=== PATIENT | female | born 1970 | race Caucasian/White ===

== ENCOUNTER 2016-07-01 12:17 | Outpatient (CLI) | payer OTHER ==
[~2016-07-01] VITALS: Ht 170.2 cm; Wt 99.8 kg
[2016-07-01] MEDS ORDERED: BUPIVACAINE 0.5% 30 ML (SENSORCAINE) VIAL ONE (12:20)
[2016-07-01] MEDS ORDERED: LIDOCAINE 1% INJ 20 ML (XYLOCAINE) VIAL ONE (12:21)
[2016-07-01] MEDS ORDERED: TRIAMCINOLONE ACET (KENALOG-40) 40 MG/ML 1 ML VIAL ONE (12:21)
[2016-07-01 12:39] VITALS: BP 145/102
[2016-07-01 13:21] VITALS: BP 144/104
--- NOTE | 2016-07-01 14:43 | Pain Medicine-Procedure ---
Procedure Pre-Op/Post-Op Diagnosis Diagnosis: spondylosis without myelopathy, lumbar Indications for Operation Low back pain Attending Surgeon Oralia Procedure Date of Service: Jul 01, 2016 Procedure: Fluoroscopic guided right Medial Branch Block of L3 to sacral ala PROCEDURE IN DETAIL: After obtaining informed consent from the patient, the patient's chart was reviewed. The patient was then brought to the procedure room and placed in the prone position. A time out was performed. The back was prepped with antiseptic solution and under fluoroscopic guidance the patient's sacral ala on the right side was identified. 2 mL's of 1% Lidocaine was used to anesthetized the skin over the sacral ala and a 22 gauge 3.5 inch needle was advanced towards the target until bone was contacted. The junction of the superior articular processes and the transverse processes at L3-L5 on the right were then identified and the skin overlying these targets was anesthetized with 1% lidocaine. Next a 22 gauge 3.5 inch needle was inserted through the skin to the level of the lumbar medial branches under radiographic guidance. Next, after negative aspiration, a mixture of 2 mL's Bupivacaine 0.5% and 80 mg Kenalog was injected in 4 equal aliquots. CSF was negative, Paresthesia was negative, Heme was negative. All needles were then flushed with 1% lidocaine and then removed. Complications None ALAYNA GUTIERRES MD Jul 01, 2016 2:43 pm
== END 2016-07-01 13:22 | disposition home or self-care (01) ==
LOC: CARD 12:17
PROVIDERS: ATTEND Pain Medicine Pain Medicine
DX: M47.816 Spondylosis without myelopathy or radiculopathy, lumbar region (principal); G89.4 Chronic pain syndrome; Z79.899 Other long term (current) drug therapy
CPT/HCPCS: 64493; 64494; 64495

== ENCOUNTER → 2016-07-18 | Outpatient (CLI) | payer OTHER ==
--- NOTE | 2016-07-18 14:06 | Diagnostic Imaging Report ---
PROCEDURE: CT lumbar spine without contrast. TECHNIQUE: Multiple contiguous axial images were obtained through the lumbar spine without the use of intravenous contrast. Sagittal and coronal reformations were then performed. INDICATION: Status post SI joint fusion. FINDINGS: There are 2 fusion screws seen through the right sacroiliac joint. No osseous bridging is seen. The alignment of both SI joints is normal. The alignment of the lumbar spine is satisfactory. The vertebral body heights are preserved. There is mild disc height loss at L2/L3, L3-L4 and L4/L5 levels. There is suggestion of minimal disc herniations at these levels without an obvious significant spinal canal stenosis identified on this exam without intrathecal contrast. There is bilateral lower lumbar spine facet joint arthropathy. There is bilateral neuroforaminal stenosis of mild to moderate degree at L4/L5 level. The other neuroforamina appear patent. IMPRESSION: Two screws across the right sacroiliac joint in good position. There is no osseous fusion seen. Dictated by: Dictated on workstation # [id number]
== END ==
LOC: RAD 13:17
PROVIDERS: ATTEND Orthopaedic Surgery Orthopaedic Surgery of the Spine
DX: Z48.89 Encounter for other specified surgical aftercare (principal); Z98.1 Arthrodesis status
CPT/HCPCS: 72131

== ENCOUNTER → 2016-07-22 | Outpatient (CLI) | payer OTHER ==
--- NOTE | 2016-07-23 18:23 | Diagnostic Imaging Report ---
Bilateral screening mammogram. The current study was also evaluated with a Computer Aided Detection (CAD) system. INDICATION: Screening. No current complaints stated on the questionnaire. COMPARISON: 10/02/15 FINDINGS: The breasts are composed of scattered fibroglandular densities. There is no mass, architectural distortion or suspicious cluster of calcification seen. Allowing for technique and positional differences, no suspicious change is seen. IMPRESSION: No significant change. ACR BI-RADS Category 2: Benign findings. Result letter will be mailed to the patient. Note: At least 10% of breast cancer is not imaged by mammography. Dictated by: Dictated on workstation # [id number]
== END ==
LOC: RAD 10:16
PROVIDERS: ATTEND Family Medicine
DX: Z12.31 Encounter for screening mammogram for malignant neoplasm of breast (principal)
CPT/HCPCS: 77067

== ENCOUNTER 2016-10-28 13:35 | Outpatient (CLI) | payer OTHER ==
[~2016-10-28] VITALS: Ht 170.2 cm; Wt 99.8 kg
[2016-10-28] MEDS ORDERED: BUPIVACAINE 0.5% 30 ML (SENSORCAINE) VIAL ONE (13:38)
[2016-10-28] MEDS ORDERED: LIDOCAINE 1% INJ 20 ML (XYLOCAINE) VIAL ONE (13:39)
[2016-10-28] MEDS ORDERED: TRIAMCINOLONE ACET (KENALOG-40) 40 MG/ML 1 ML VIAL ONE (13:39)
[2016-10-28 13:49] VITALS: BP 133/91
[2016-10-28 14:33] VITALS: BP 139/96
--- NOTE | 2016-10-28 16:03 | Pain Medicine-Procedure ---
Procedure Pre-Op/Post-Op Diagnosis Diagnosis: spondylosis without myelopathy, lumbar Indications for Operation Low back pain Attending Surgeon Oralia Procedure Date of Service: October 28, 2016 Procedure: Fluoroscopic guided right Medial Branch Block of L3 to sacral ala PROCEDURE IN DETAIL: After obtaining informed consent from the patient, the patient's chart was reviewed. The patient was then brought to the procedure room and placed in the prone position. A time out was performed. The back was prepped with antiseptic solution and under fluoroscopic guidance the patient's sacral ala on the right side was identified. 2 mL's of 1% Lidocaine was used to anesthetized the skin over the sacral ala and a 22 gauge 3.5 inch needle was advanced towards the target until bone was contacted. The junction of the superior articular processes and the transverse processes at L3-L5 on the right were then identified and the skin overlying these targets was anesthetized with 1% lidocaine. Next a 22 gauge 3.5 inch needle was inserted through the skin to the level of the lumbar medial branches under radiographic guidance. Next, after negative aspiration, a mixture of 2 mL's Bupivacaine 0.5% and 80 mg Kenalog was injected in 4 equal aliquots. CSF was negative, Paresthesia was negative, Heme was negative. All needles were then flushed with 1% lidocaine and then removed. Complications None ALAYNA GUTIERRES MD October 28, 2016 4:03 pm
== END 2016-10-28 14:34 ==
LOC: CARD 13:35
PROVIDERS: ATTEND Pain Medicine Pain Medicine
DX: M47.816 Spondylosis without myelopathy or radiculopathy, lumbar region (principal); Z79.899 Other long term (current) drug therapy
CPT/HCPCS: 64493; 64494; 64495

== ENCOUNTER → 2017-08-22 | Outpatient (CLI) | payer OTHER ==
--- NOTE | 2017-08-22 18:10 | Diagnostic Imaging Report ---
Digital mammogram bilateral screening. This study was compared to the prior exams of 07/22/2016, 10/02/2015, and 10/20/2013. At this time, there are no current complaints. The current study was also evaluated with a Computer Aided Detection (CAD) system. FINDINGS: There are scattered fibroglandular densities in both breasts which could obscure a lesion. Overall, there does not appear to have been any significant change when compared to the prior exam. No primary or secondary sign of malignancy is noted. IMPRESSION: There is no radiographic evidence for malignancy. ACR BI-RADS Category 1: Negative. Result letter will be mailed to the patient. Note: At least 10% of breast cancer is not imaged by mammography. Dictated by: Dictated on workstation # [id number]
== END ==
LOC: RAD 09:53
PROVIDERS: ATTEND Family Medicine
DX: Z12.31 Encounter for screening mammogram for malignant neoplasm of breast (principal)
CPT/HCPCS: 77067

== ENCOUNTER 2017-11-20 14:46 | Outpatient (CLI) | payer OTHER ==
[~2017-11-20] VITALS: Ht 170.2 cm; Wt 90.7 kg
[2017-11-20] MEDS ORDERED: methylPREDNISolone 80 MG/ML (DEPO MEDROL) VIAL ONE (14:51)
[2017-11-20 14:58] VITALS: BP 140/94
[2017-11-20 15:16] VITALS: BP 157/118
--- NOTE | 2017-11-20 18:51 | OPERATIVE REPORT ---
DATE OF SERVICE: 11/20/2017 DIAGNOSIS: Lumbar spondylosis. PROCEDURE: Fluoroscopic-guided facet medial branch block right. PROCEDURE IN DETAIL: After obtaining informed consent from the patient, the patient's chart was reviewed. The patient was then brought to the procedure room and placed in prone position. Time-out was performed. The area and the right neck, upper back, lower back was prepped with antiseptic solution and under fluoroscopic guidance, the patient's L2, L3, L4, and L5 area was examined and the facet joints listed above were identified. L2, L3, L4, and L5 was identified under fluoroscopy. A 22-gauge 3-1/2 inch spinal needle was inserted and advanced under fluoroscopy down to the area where the pedicle and the transverse process meet and approximately 1 mL of 1% lidocaine was injected at this level. This was then repeated for the remainder of the levels stated above. Afterwards, the needle was removed. Band-Aids were applied to all sites and the patient tolerated the procedure well and was taken to the recovery area in stable condition. COMPLICATIONS: None. Job ID: [id number] DocumentID: [id number] Dictated Date: 11/20/2017 15:16:18 Manager [employer] Date: 11/20/2017 18:50:19 Dictated By: MIRA PISANO DO
== END 2017-11-20 15:18 | disposition home or self-care (01) ==
LOC: CARD 14:46
PROVIDERS: ATTEND Pain Medicine Interventional Pain Medicine
DX: M54.16 Radiculopathy, lumbar region (principal)
CPT/HCPCS: 64493; 64494; 64495

== ENCOUNTER → 2017-12-26 | Outpatient (CLI) | payer OTHER ==
--- NOTE | 2017-12-26 15:40 | Diagnostic Imaging Report ---
PROCEDURE: MRI lumbar spine. TECHNIQUE: Multiplanar, multisequence MRI of the lumbar spine was performed without contrast. INDICATION: History of discectomy, numbness to the right knee, back pain. COMPARISON: Study compared to 04/20/2016. FINDINGS: Lumbar body heights are maintained. Alignment is anatomic. Marrow signal intensity is normal. No paravertebral mass, hemorrhage, or fluid collection. Partially visualized sacrum is unremarkable. The conus appeared normal. There is no paravertebral mass, hemorrhage, or fluid collection. T12-L1: Mild disc stature loss and bulging anterior greater than posterior present. Disc material posteriorly is mildly asymmetric to the left with a borderline mild degree of left foraminal narrowing. This is stable. No substantial canal or right foraminal stenosis. Lateral recess is patent. L1-L2: Very slight circumferential annular disc bulge without focal herniation, stable. Left renal cortical cysts noted, stable. L2-L3: Disc desiccation, loss of disc stature, and circumferential bulge with endplate osteophytes result in a mild degree of right greater than left foraminal narrowing and no substantial canal stenosis. This is stable. L3-L4: Disc desiccation with mild stature loss is present without focal disc herniation and no stenosis to the canal, foramina, or recesses. L4-L5: There is disc desiccation with slight circumferential bulge. There is a mild degree of biforaminal narrowing. The spinal canal is widely patent. L5-S1: This level and disc appeared normal. IMPRESSION: Mild degenerative changes with mild foraminal narrowing. No high-grade canal stenosis. No fracture, malalignment, or acute pathology. No change. Dictated by: Dictated on workstation # [id number]
== END ==
LOC: RAD 13:37
PROVIDERS: ATTEND Pain Medicine Interventional Pain Medicine
DX: M47.26 Other spondylosis with radiculopathy, lumbar region (principal); M51.16 Intervertebral disc disorders with radiculopathy, lumbar region; M99.73 Connective tissue and disc stenosis of intervertebral foramina of lumbar region
CPT/HCPCS: 72148

== ENCOUNTER → 2019-07-16 | Outpatient (CLI) | payer OTHER ==
--- NOTE | 2019-07-16 11:43 | Diagnostic Imaging Report ---
INDICATION: Routine screening. COMPARISON: 08/22/2017 and 07/22/2016. TECHNIQUE: 2D and 3D bilateral screening mammography was performed with CAD. FINDINGS: Scattered fibroglandular densities are identified bilaterally. The parenchymal pattern is stable. No mass is identified. No malignant appearing microcalcifications are seen. The axillae are unremarkable. IMPRESSION: No mammographic features suspicious for malignancy are identified. ACR BI-RADS Category 1: Negative. Result letter will be mailed to the patient. Note: At least 10% of breast cancer is not imaged by mammography. Dictated by: Dictated on workstation # [id number]
== END ==
LOC: RAD 08:28
PROVIDERS: ATTEND Nurse Practitioner Family
DX: Z12.31 Encounter for screening mammogram for malignant neoplasm of breast (principal)
CPT/HCPCS: 77067

== ENCOUNTER 2019-07-28 13:44 | Outpatient (CLI) | payer OTHER ==
[~2019-07-28] VITALS: Ht 170.2 cm; Wt 90.8 kg
[2019-07-28] MEDS ORDERED: TIZA4CAP8 PO (14:50)
[2019-07-28] MEDS ORDERED: NEBI5TAB8 PO (14:50)
[2019-07-28] MEDS ORDERED: ATOR10TA66 PO (14:50)
[2019-07-28] MEDS ORDERED: BACL10TA PO (14:50)
[2019-07-28] MEDS ORDERED: UBID100C44 PO (14:50)
[2019-07-28] MEDS ORDERED: VENL75TA2 PO (14:50)
[2019-07-28] MEDS ORDERED: AMIT25TA9 PO (14:50)
[2019-07-28] MEDS ORDERED: HYDR-3820 PO (14:50)
== END 2019-07-28 14:54 | disposition home or self-care (01) ==
LOC: PREOP 13:44
PROVIDERS: ATTEND Surgery
DX: Z01.818 Encounter for other preprocedural examination (principal)

== ENCOUNTER 2019-08-02 08:57 | Day surgery (SDC) | payer OTHER ==
[~2019-08-02] VITALS: Ht 170.2 cm; Wt 90.8 kg
[~2019-08-02 08:57] MED LIST: AMIT25TA9 PO; ATOR10TA66 PO; BACL10TA PO; HYDR-3820 PO; NEBI5TAB8 PO; TIZA4CAP8 PO; UBID100C44 PO; VENL75TA2 PO
[2019-08-02] MEDS ORDERED: LACTATED RINGERS 1,000 ML IV ONE (09:02)
[2019-08-02] MEDS ORDERED: proPOfol 200 MG/20 ML (DIPRIVAN) VIAL IV ONE (09:18)
[2019-08-02] MEDS ORDERED: MIDAZOLAM 2 MG/2 ML (VERSED) VIAL ONE (09:18)
[2019-08-02 09:20] VITALS: BP 131/94
--- NOTE | 2019-08-02 09:20 | Progress Note-Pre Operative ---
Pre-Operative Progress Note H&P Reviewed The H&P was reviewed, patient examined and no changes noted. Time Seen by Provider: 09:17 Date H&P Reviewed: Aug 02, 2019 Time H&P Reviewed: 09:18 Pre-Operative Diagnosis: screening colonoscopy EDNA SAAVEDRA DO Aug 02, 2019 09:20
[2019-08-02] MEDS ORDERED: LACTATED RINGERS 1,000 ML IV STA (09:24)
[2019-08-02] MEDS ORDERED: KRIL1CAP PO (09:29)
[2019-08-02] MEDS ORDERED: LORA10TA7 PO (09:29)
[2019-08-02] MEDS ORDERED: MULT1TAB69 PO (09:29)
[2019-08-02] MEDS ORDERED: NABU750T PO (09:29)
[2019-08-02 10:10] VITALS: BP 97/59
[2019-08-02 10:15] VITALS: BP 97/59
--- NOTE | 2019-08-02 10:15 | Progress Note-Post Operative ---
Post-Operative Progess Note Surgeon (s)/Lathe Machine Operator (s) Surgeon EDNA SAAVEDRA DO Lathe Machine Operator: REBECA Tran Pre-Operative Diagnosis screening colonoscopy Post-Operative Diagnosis internal hemorrhoids Procedure & Operative Findings Date of Procedure 08/02/19 Procedure Performed/Findings Colon Anesthesia Type IV sedation by ORDINARY SEAMAN Estimated Blood Loss Estimated blood loss (mL): none Specimens/Packing Specimens Removed none EDNA SAAVEDRA DO Aug 02, 2019 10:15
--- NOTE | 2019-08-02 10:16 | Endoscopy Discharge Instruct ---
Endo Procedure/Findings Findings 1.: Internal Hemorrhoids Discharge Instructions - Activity: You might feel a little sleepy until tomorrow. This is due to the me dicine you received to relax you. Until tomorrow, you should: NOT drive a car, operate machinery or power tools. NOT drink any alcoholic beverages. NOT make any important decisions or sign importortant papers. Do not return to work until tomorrow, unless otherwise instructed. Resume previous activities tomorrow. Diet: Start by taking liquids. If you tolerate liquids, advance to solid food. make an appointment for one week 1.: Colonscopy in 10 years Notify Physician - If you experience excessive bleeding, unusual abdominal pain, fever, or chest pain, contact your doctor immediately. EDNA SAAVEDRA DO Aug 02, 2019 10:16
--- NOTE | 2019-08-02 10:24 | Anesthesia-General Post-Op ---
MAC Patient Condition Mental Status/LOC: Same as Preop Cardiovascular: Satisfactory Nausea/Vomiting: Absent Respiratory: Satisfactory Pain: Controlled Complications: Absent Post Op Complications Complications None Follow Up Care/Instructions Patient Instructions None needed. Anesthesiology Discharge Order Discharge Order Patient is doing well, no complaints, stable vital signs, no apparent adverse anesthesia problems. GENIA MILLER DO Aug 02, 2019 10:24
[2019-08-02 10:40] VITALS: BP 111/64
[2019-08-02 13:05] VITALS: BP 111/64
--- NOTE | 2019-08-02 19:43 | OPERATIVE REPORT ---
DATE OF SERVICE: PREOPERATIVE DIAGNOSIS: Screening colonoscopy. POSTOPERATIVE DIAGNOSIS: Internal hemorrhoids. PROCEDURE: Colonoscopy. SURGEON: John Nguyen DO. CLIENT CONSULTANT: Turner Calhoun MS3. ANESTHESIA: IV sedation by the PATTERNMAKER BENCH. SPECIMENS: None. BLOOD LOSS: None. FLUIDS: Per anesthesia. POSTOPERATIVE CONDITION: Stable. INDICATION FOR PROCEDURE: The patient is a 49-year-old female, who needed a colonoscopy for screening. FINDINGS: The patient had some very small internal hemorrhoids. No other obvious pathology. PROCEDURE NOTE: After informed consent was obtained, the patient was brought to the endoscopy suite, placed in bed in left lateral decubitus position. She was administered IV sedation by the PATTERNMAKER BENCH who then monitored her vitals the entire time, heart rate, blood pressure, pulse ox and the scope was inserted, pushed all the way about 150 cm, able to get all the way to cecum, took a picture of appendiceal orifice, noted the ileocecal valve and then slowly withdrew the scope insufflating to look circumferentially at the givens looking the cecum, up the ascending colon to hepatic flexure, then down the transverse colon, splenic flexure, into the descending colon then down the sigmoid and finally into the rectum, retroflexed in the rectal vault, saw some minimal internal hemorrhoids, barely even grade I and then removed the scope. The patient tolerated the procedure, recovered in endoscopy suite. Job ID: [id number] DocumentID: [id number] Dictated Date: 08/02/2019 14:50:54 Hair Spinner Date: 08/02/2019 19:42:30 Dictated By: JOHN NGUYEN DO MTDD
== END 2019-08-02 10:50 | disposition home or self-care (01) ==
LOC: ENDO 08:57
PROVIDERS: ATTEND Surgery
DX: Z12.11 Encounter for screening for malignant neoplasm of colon (principal); K64.8 Other hemorrhoids; I10 Essential (primary) hypertension; J30.9 Allergic rhinitis, unspecified; E66.9 Obesity, unspecified; E78.5 Hyperlipidemia, unspecified; F41.9 Anxiety disorder, unspecified; Z68.31 Body mass index [BMI] 31.0-31.9, adult; Z88.2 Allergy status to sulfonamides; Z88.5 Allergy status to narcotic agent; Z90.710 Acquired absence of both cervix and uterus; Z79.899 Other long term (current) drug therapy; Z83.3 Family history of diabetes mellitus; Z80.9 Family history of malignant neoplasm, unspecified